=== PATIENT | female | born 1990 | race Caucasian/White ===

== ENCOUNTER 2025-03-03 11:35 | Emergency (ER) | payer OTHER, SELFPAY ==
[2025-03-03 11:45] VITALS: BP 131/77; PULSE 88; RESP 18; TEMP 37.3; O2SAT 97; BMI 36.1
--- NOTE | 2025-03-03 11:51 | ED_ITS ---
<Statement entered by Eric Cortes, DO - 03/03/25 18:23> Co-sign statement: I was available for consultation during this patient's emergency department visit. This chart is being signed by myself for administrative purposes only. I do not have direct contact with this patient during this visit. They were seen independently by the APC. HPI - Female Genitourinary General Chief complaint: Urogenital-Female Stated complaint: possible UTI Time Seen by Provider: 03/03/25 11:50 Source: patient Mode of arrival: Ambulatory History of Present Illness HPI Narrative: 34-year-old female presents to the ED with 1 day of urinary symptoms including dysuria, urgency, frequency. Denies fever, chills, nausea, vomiting, flank pain. Patient does endorse some suprapubic pain. No chest pain, shortness of breath, abdominal pain, lightheadedness, dizziness, syncope. Related Data Previous Rx's ?Medication ?Instructions ?Recorded nitrofurantoin 100 mg PO Q12H 5 days #10 ca ps 03/03/25 monohydrate/macrocrystals 100 mg capsule (Macrobid) Allergies Allergy/AdvReac Type Severity Reaction Status Date / Time No Known Drug Allergies Allergy Verified 03/03/25 11:45 Review of Systems Constitutional Constitutional: Denies chills, Denies fatigue, Denies fever(s), Denies frequent falls, Denies lethargy and Denies weakness Eyes Eyes: Denies change in vision, Denies eye discharge, Denies irritation and Denies loss of vision ENT Ears, Nose, Mouth, and Throat: Denies change in voice, Denies dizziness, Denies neck pain, Denies sore throat and Denies throat swelling Cardiovascular Cardiovascular: Denies chest pain, Denies irregular heart rhythm, Denies lightheadedness, Denies palpitations, Denies dyspnea, Denies dyspnea on exertion and Denies orthopnea Respiratory Respiratory: Denies cough, Denies dyspnea, Denies dyspnea on exertion and Denies wheezing Gastrointestinal Gastrointestinal: Denies abdominal pain, Denies change in bowel habits, Denies diarrhea, Denies nausea and Denies vomiting Comments: Suprapubic pain Genitourinary Genitourinary: Reports dysuria and Reports urinary urgency Comments: Urinary frequency Musculoskeletal Musculoskeletal: Denies neck pain and Denies numbness Integumentary/Breasts Skin/Breast: Denies pruritus, Denies erythema, Denies rash and Denies wounds Neurologic Neurologic: Denies behavioral changes, Denies confusion, Denies dizziness, Denies frequent falls, Denies loss of vision, Denies numbness and Denies weakness Psychiatric Psychiatric: Denies anxiety, Denies behavioral changes, Denies confusion, Denies depression, Denies homicidal ideation and Denies suicidal ideation Endocrine Endocrine: Denies fatigue, Denies flushing and Denies palpitations Hematologic/Lymphatic Hematologic/Lymphatic: Denies easy bruising Allergic/Immunologic Allergic/Immunologic: Denies urticaria, Denies throat swelling and Denies wheezing Exam Narrative Exam Narrative: General:?cooperative, healthy appearing and comfortable [facility] Head:?normal to inspection Ears:?hearing grossly normal bilaterally Nose:?external nose normal Face and sinus:?normal facial exam and sinuses nontender Mouth:?oral mucosae normal Throat:?posterior oropharynx normal Eyes General:?appearance normal, both eyes and all related structures Neck Neck:?normal visual inspection and no lymphadenopathy noted Resp Effort & Inspection:?normal respiratory effort Auscultation:?clear to auscultation bilaterally Cardio Rate:?regular rate Rhythm:?regular rhythm GI Abdomen is soft, nondistended, nontender to palpation. No CVA tenderness. Neuro General:?patient alert, patient awake and patient oriented x3 Initial Vital Signs Initial Vital Signs: Vital Signs Temperature 99.2 F 03/03/25 11:45 Pulse Rate 88 03/03/25 11:45 Respiratory Rate 18 03/03/25 11:45 Blood Pressure 131/77 03/03/25 11:45 Pulse Oximetry 97 03/03/25 11:45 Oxygen Delivery Method Room Air 03/03/25 11:45 Course Orders Ordered: ED Orders 03/03/25 11:48 Urine Culture Stat Urine Microscopic Stat Discontinued Medications Ondansetron HCl (Ondansetron 4 Mg/2 Ml Inj) 4 mg IV NOW PRN PRN Reason: Nausea And Vomiting Ondansetron HCl (Ondansetron 4 Mg Odt) 4 mg PO NOW PRN PRN Reason: Nausea And Vomiting Vital Signs Vital signs: Vital Signs - 8 hr 03/03/25 11:45 Temperature 99.2 F Pulse Rate 88 Respiratory Rate 18 Blood Pressure 131/77 Pulse Oximetry 97 Oxygen Delivery Method Room Air MDM - Female Genitourinary Lab Data Labs: Lab Results 03/03/25 Range/Units 11:48 Urine RBC None seen (0-5/HPF) Urine WBC 1-5/hpf (0-5/HPF) Ur Squamous Epith Cells None seen (0-5/HPF) Urine Bacteria None seen (None) Ur Culture Indicated? Specimen cultured Vol Urine Centrifuged 10ml (spun) Point of Care Testing Test Results Negative Urine Dip Bedside Urine Glucose Negative Bedside Urine Bilirubin - Negative Bedside Urine Ketone - Negative Urine Specific [place] 1.005 Bedside Urine Occult Blood - Negative Bedside Urine pH 6.5 Bedside Urine Protein - Negative Bedside Urine Urobilinogen - Negative Bedside Urine Nitrite - Negative Bedside Urine Leukocytes + 70 Esterase MDM Narrative Medical decision making narrative: 34-year-old female presents to the ED with 1 day of urinary symptoms including dysuria, urgency, frequency. Concern for UTI versus pyelonephritis versus other. Will obtain UA, reassess. Urine POC positive for leukocyte esterase. Negative WBCs. Prescribed antibiotics. ED return precautions discussed with patient. Patient verbalized understanding. Medical records reviewed: Yes Discharge Plan Departure Patient Disposition: Home Clinical Impression: Urinary tract infection Instructions: DI for Urinary Tract Infection (UTI) Activity Restrictions/Additional Instructions: You were evaluated in the emergency department for urinary discomfort. You are being prescribed antibiotics for a urinary tract infection. Please take those as prescribed. Please follow-up with your PCP as soon as possible. Return to the ED if you have worsening symptoms. Prescriptions: New nitrofurantoin monohyd/m-cryst [Macrobid] 100 mg capsule 100 mg PO Q12H 5 Days Qty: 10 0RF Rx Instructions: must administer with a meal/food Stand Alone Forms: Patient Portal/API
[2025-03-03 12:20] LABS: Culture Indicated Urine Specimen Cultured
== END 2025-03-03 12:40 | disposition home or self-care (01) ==
PROVIDERS: Emergency Provider Student in an Organized Health Care Education/Training Program
DX: N39.0 Urinary tract infection, site not specified (principal); R10.30 Lower abdominal pain, unspecified
CPT/HCPCS: 81003; 81015; 81025; 87077; 87086; 99282